=== PATIENT | male | born 1940 | race Caucasian/White ===

== ENCOUNTER 2017-04-20 00:17 | Emergency (ER) | payer OTHER ==
[~2017-04-20] VITALS: Ht 182.9 cm; Wt 92.1 kg
[~2017-04-20 00:17] MED LIST: AMLO5 PO; CARB25TA PO; CLOP75TA PO; FOSA70TA PO; HUMALOGP SQ; HYDR-3534 PO; LANTUS2P SQ; LEVE500 PO; NAME10TA PO; NORC7.5T PO; PERI8.6T PO; PROP10TA6 PO; PROT40TA PO; RIVA10 PO; SERT100 PO; TRAZ50TA4 PO; Z.0.WALKERFRONT
[2017-04-20 00:25] VITALS: BP 120/64; PULSE 56; RESP 16; TEMP 98.5; O2SAT 97
[2017-04-20] MEDS ORDERED: LANTUS2P SQ (01:15)
[2017-04-20] MEDS ORDERED: PROP10TA6 PO (01:15)
[2017-04-20] MEDS ORDERED: MEMA1TAB2 PO (01:15)
[2017-04-20] MEDS ORDERED: AMLO5 PO (01:15)
[2017-04-20] MEDS ORDERED: [UNRECOGNIZED DRUG - CODE] (01:15)
[2017-04-20] MEDS ORDERED: POLY17PO3 (01:15)
[2017-04-20] MEDS ORDERED: CARB25TA9 PO (01:15)
[2017-04-20] MEDS ORDERED: ZOLO100T PO (01:15)
[2017-04-20] MEDS ORDERED: ALIG4CAP PO (01:15)
[2017-04-20] MEDS ORDERED: LEVE500 PO (01:15)
[2017-04-20] MEDS ORDERED: ALEN1TAB48 PO (01:15)
[2017-04-20] MEDS ORDERED: HUMA100I3 SQ (01:15)
--- NOTE | 2017-04-20 01:50 | RADRPT ---
EXAM DATE/TIME: 04/20/2017 01:38 [place] COMPARISON: No previous studies available for comparison. INDICATIONS : Left wrist pain. MEDICAL HISTORY : None. SURGICAL HISTORY : None. ENCOUNTER: Initial ACUITY: 1 day PAIN SCORE: 5/10 LOCATION: Left wrist. FINDINGS: Three view examination of the left wrist demonstrates no soft tissue swelling, dislocation, or fractu re. The carpal bones are in normal alignment. Degenerative changes are seen. The joint spaces are ma intained. Bony mineralization is normal. CONCLUSION: Chris changes without fracture.. Herb Clarke MD on April 20, 2017 at 1:49 Board Certified Radiologist. This report was verified electronically.
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
[2017-04-20] MEDS ORDERED: IBUPROFEN 600 MG TAB PO ONE (02:30)
[2017-04-20] MEDS ORDERED: ACETAMINOPHEN 325 MG TAB PO ONE (02:30)
== END 2017-04-20 02:42 | disposition home or self-care (01) ==
LOC: PHED 00:17
DX: S63.502A Unspecified sprain of left wrist, initial encounter (principal); M25.50 Pain in unspecified joint; I50.9 Heart failure, unspecified; E11.9 Type 2 diabetes mellitus without complications; I10 Essential (primary) hypertension; G20 Parkinson's disease; K21.9 Gastro-esophageal reflux disease without esophagitis; J44.9 Chronic obstructive pulmonary disease, unspecified; E78.00 Pure hypercholesterolemia, unspecified; G30.9 Alzheimer's disease, unspecified
CPT/HCPCS: 73110; 99283; L3908

== ENCOUNTER 2017-04-22 06:47 | Day surgery (SDC) | payer OTHER ==
[~2017-04-22 06:47] MED LIST changes: +ALEN1TAB48 PO; +ALIG4CAP PO; -CARB25TA PO; +CARB25TA9 PO; -CLOP75TA PO; -FOSA70TA PO; +HUMA100I3 SQ; -HUMALOGP SQ; -HYDR-3534 PO; +MEMA1TAB2 PO; -NAME10TA PO; -NORC7.5T PO; -PERI8.6T PO; +POLY17PO3; -PROT40TA PO; -RIVA10 PO; -SERT100 PO; -TRAZ50TA4 PO; -Z.0.WALKERFRONT; +ZOLO100T PO; +[UNRECOGNIZED DRUG - CODE]
[2017-04-22] MEDS ORDERED: TRAZ50TA12 PO (07:33)
[2017-04-22] MEDS ORDERED: VANCOMYCIN 1000 MG/NS 250 ML IV SCH ×2 (07:45)
[2017-04-22] MEDS ORDERED: CHLORHEXIDINE GLUCONATE 2 % 1 PACK (2 CLOTHS) TOPICAL SCH (07:45)
[2017-04-22] MEDS ORDERED: POVIDONE IODINE 5% (ANTISEPSIS KIT) 4 APPLICATIONS EACH NARE SCH (07:45)
[2017-04-22] MEDS ORDERED: ceFAZolin 2 GM PREMIX 50 ML IV SCH (07:45)
[2017-04-22] MEDS ORDERED: MUPIROCIN 2% OINT 1 APPLIC/GM SYR NASAL SCH (07:45)
[2017-04-22] MEDS ORDERED: MIDAZOLAM HCL 5 MG/5 ML VIAL ONE (08:30)
--- NOTE | 2017-04-22 12:59 | MP ---
cc: HARRY BALDERAS M.D. DATE OF SURGERY 04/22/2017 PROCEDURE Medtronic loop recorder implant. INDICATIONS Recurrent, unexplained syncope. OPERATIVE NOTES The patient was brought to the DOC Unit in a fasting state after having signed informed consent. The left upper chest was prepped and draped as per policy and anesthetized with 1% lidocaine. A small incision was made and a Medtronic Reveal loop recorder was implanted as per protocol. A Steri-Strip was placed over the small incision. There were no apparent immediate complications. CONCLUSION Successful implantation of a Medtronic Reveal loop recorder. Harry Balderas MD [facility] /11:50 AM 12:59 PM
== END 2017-04-22 09:33 | disposition home or self-care (01) ==
LOC: HDOC 06:47 → HDIC 06:48 → HDOC 09:33
PROVIDERS: ATTEND Internal Medicine Cardiovascular Disease
DX: R55 Syncope and collapse (principal); I48.0 Paroxysmal atrial fibrillation; E11.22 Type 2 diabetes mellitus with diabetic chronic kidney disease; N18.3 Chronic kidney disease, stage 3 (moderate); J44.9 Chronic obstructive pulmonary disease, unspecified; E78.5 Hyperlipidemia, unspecified; M81.0 Age-related osteoporosis without current pathological fracture; G25.81 Restless legs syndrome; G20 Parkinson's disease; K21.9 Gastro-esophageal reflux disease without esophagitis; B19.20 Unspecified viral hepatitis C without hepatic coma; Z72.0 Tobacco use; Z79.4 Long term (current) use of insulin; Z86.73 Personal history of transient ischemic attack (TIA), and cerebral infarction without residual deficits
CPT/HCPCS: 33282; C1764; J2250; J3010

== ENCOUNTER 2017-07-12 16:35 | Emergency (ER) | payer OTHER ==
[~2017-07-12] VITALS: Ht 182.9 cm; Wt 88.4 kg
[~2017-07-12 16:35] MED LIST changes: -HUMA100I3 SQ; -LANTUS2P SQ; +TRAZ50TA12 PO
[2017-07-12 16:51] VITALS: BP 155/74; PULSE 74; RESP 16; TEMP 98.8; O2SAT 96
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
== END 2017-07-12 18:01 | disposition home or self-care (01) ==
LOC: PHEFT 16:35
DX: M25.532 Pain in left wrist (principal); Z79.01 Long term (current) use of anticoagulants; G30.9 Alzheimer's disease, unspecified; F02.80 Dementia in other diseases classified elsewhere, unspecified severity, without behavioral disturbance, psychotic disturbance, mood disturbance, and anxiety; E78.00 Pure hypercholesterolemia, unspecified; I11.0 Hypertensive heart disease with heart failure; I50.9 Heart failure, unspecified; I25.10 Atherosclerotic heart disease of native coronary artery without angina pectoris; K21.9 Gastro-esophageal reflux disease without esophagitis; G20 Parkinson's disease; I25.2 Old myocardial infarction
CPT/HCPCS: 99282; L3908